=== PATIENT | female | born 1970 | race American Indian/Alaskan Native ===

== ENCOUNTER 2017-02-06 15:09 | Outpatient (CLI) | payer OTHER ==
--- NOTE | 2017-02-06 16:38 | Mammography Report ---
RIGHT DIGITAL DIAGNOSTIC MAMMOGRAM with CAD and RIGHT BREAST ULTRASOUND: 02/06/17 15:09:00 CLINICAL: Follow-up asymmetry and complex cysts. COMPARISON:09/05/16 FINDINGS: The breast is heterogeneously dense, which may obscure small masses. No mass, architectural distortion or suspicious calcifications. Ultrasound of the right breast demonstrated a slightly smaller complex cyst with low level internal echoes and a mild lobular contour at 2:30 o'clock 4 cm from the nipple. It measures 0.8 x 3.5 x 0.6 cm compared to 9 x 5 x 9 mm. A slightly smaller complex cyst with low level internal echoes at 3 o'clock 4 cm from the nipple measures 4 x 3 x 5 mm compared to 6 x 4 x 3 mm. IMPRESSION: Benign slightly smaller complex cysts. No suspicious findings. BI-RADS CATEGORY: 2 -- Benign RECOMMENDATION: Return to routine mammographic screening. Please note that the patient was told to come back for a followup ultrasound in six months. However after further review, I now recommend that she return for routine screening of both breasts in July 2017. A followup ultrasound is not necessary. ACR BI-RADS MAMMOGRAPHIC CODES: 0 = Needs additional imaging evaluation; 1 = Negative; 2 = Benign; 3 = Probably benign; 4 = Suspicious; 5 = Malignant; 6 = Known biopsy-proven malignancy COMMENT: 1. Dense breast tissue, i.e., adenosis, fibrocystic changes, etc., may obscure an underlying neoplasm. 2. Approximately 10% of cancers are not detected with mammography. 3. A negative mammography report should not delay biopsy if a clinically suspicious mass is present. COMMENT: Patient follow-up letters are generated by our [employer] application.
== END 2017-02-06 15:10 | disposition home or self-care (01) ==
LOC: SPVWC 15:09
PROVIDERS: ATTEND Obstetrics & Gynecology
DX: N60.01 Solitary cyst of right breast (principal)
CPT/HCPCS: 76642; G0206